=== PATIENT | female | born 1965 | race Caucasian/White ===

== ENCOUNTER → 2019-11-09 | Outpatient (CLI) | payer OTHER ==
[2019-11-09 16:56] LABS: Bilirubin, Urine Neg (Neg); Blood, Urine 1+ (Neg); Glucose Qualitative, Urine Neg (Neg); Ketones, Urine Neg (Neg); Leukocyte Esterase, Urine Neg (Neg); Nitrite, Urine Neg (Neg); Protein, Urine Neg (Neg); Urobilinogen, Urine NORM (Normal); pH, Urine 6.5 (5.0-8.0)
[2019-11-09 17:11] LABS: Appearance, Urine Clear (Clear); Color, Urine Yellow (P-Yellow)
[2019-11-09 17:16] LABS: Bacteria Rare /hpf; Red Blood Cells, Urine 0-2 /hpf (0-2); Squamous Epithelial Cells Rare /hpf (Few); White Blood Cells, Urine Not Seen /hpf (0-5)
== END | disposition home or self-care (01) ==
LOC: LAB 14:51 → LAB SHORT 14:51
PROVIDERS: Physician Assistant
DX: Z13.6 Encounter for screening for cardiovascular disorders (principal)
CPT/HCPCS: 81001

== ENCOUNTER 2019-12-06 00:03 | Day surgery (SDC) | payer OTHER ==
[2019-12-06] MEDS ORDERED: ALBU90OI INH (09:57)
[2019-12-06] MEDS ORDERED: PRAZ2 PO (09:57)
[2019-12-06] MEDS ORDERED: Atrovent Inha12.9 GM INH (09:59)
[2019-12-06] MEDS ORDERED: CLARITIN-D 121 EACH PO (10:00)
[2019-12-06] MEDS ORDERED: Flovent 44 mc10.6 GM INH (10:08)
[2019-12-06] MEDS ORDERED: GABA300 PO (10:12)
[2019-12-06] MEDS ORDERED: FOLI1 PO (10:14)
[2019-12-06] MEDS ORDERED: CHLO25 PO (10:14)
[2019-12-06] MEDS ORDERED: Prilosec Otc20 MG PO (10:14)
[2019-12-06] MEDS ORDERED: HYDPAM50 PO (10:15)
[2019-12-06] MEDS ORDERED: ATOR20 PO (10:16)
[2019-12-06] MEDS ORDERED: TRAZ100 PO (10:17)
[2019-12-06] MEDS ORDERED: Docusate Sodiu250 MG PO (10:17)
[2019-12-06] MEDS ORDERED: ONE-A-DAY MENO1 EACH PO (10:19)
[2019-12-06] MEDS ORDERED: BIOTIN1 MG PO (10:20)
[2019-12-06] MEDS ORDERED: C Complex1000 MG PO (10:38)
[2019-12-06] MEDS ORDERED: ACET500 PO (10:39)
[2019-12-06] MEDS ORDERED: NORT25 PO (10:40)
[2019-12-06] MEDS ORDERED: BUSP5 PO (10:40)
== END 2019-12-06 09:55 | disposition home or self-care (01) ==
LOC: ATC 00:03
DX: R35.0 Frequency of micturition (principal); R33.9 Retention of urine, unspecified; F17.210 Nicotine dependence, cigarettes, uncomplicated; I10 Essential (primary) hypertension; E78.5 Hyperlipidemia, unspecified; J44.9 Chronic obstructive pulmonary disease, unspecified; F41.9 Anxiety disorder, unspecified; F32.9 Major depressive disorder, single episode, unspecified; K21.9 Gastro-esophageal reflux disease without esophagitis; Z79.899 Other long term (current) drug therapy; Z88.8 Allergy status to other drugs, medicaments and biological substances; Z88.1 Allergy status to other antibiotic agents
CPT/HCPCS: 51798

== ENCOUNTER 2019-12-23 16:39 | Emergency (ER) | payer OTHER ==
[~2019-12-23] VITALS: Ht 167.6 cm; Wt 90.7 kg
[~2019-12-23 16:39] MED LIST: ACET500 PO; ATOR20 PO; BIOTIN1 MG PO; BUSP5 PO; C Complex1000 MG PO; CHLO25 PO; GABA300 PO; HYDPAM50 PO; ONE-A-DAY MENO1 EACH PO; PRAZ2 PO; Prilosec Otc20 MG PO; TRAZ100 PO
[2019-12-23] MEDS ORDERED: Mirapex0.25 MG PO (16:59)
[2019-12-23] MEDS ORDERED: Aspirin EC81 MG PO (17:00)
[2019-12-23] MEDS ORDERED: NICOTINE LOZENGE2 MG MM (17:01)
[2019-12-26] MEDS ORDERED: K-Dur10 MEQ PO (00:16)
== END 2019-12-23 22:07 | disposition home or self-care (01) ==
LOC: ER 16:39
DX: F10.129 Alcohol abuse with intoxication, unspecified (principal); G89.29 Other chronic pain; Z88.1 Allergy status to other antibiotic agents; Z79.899 Other long term (current) drug therapy
CPT/HCPCS: 99285

== ENCOUNTER 2019-12-25 09:40 | Emergency (ER) | payer OTHER ==
[~2019-12-25] VITALS: Ht 167.6 cm; Wt 86.2 kg
[~2019-12-25 09:40] MED LIST changes: +Aspirin EC81 MG PO; +Mirapex0.25 MG PO; +NICOTINE LOZENGE2 MG MM
[2019-12-25 10:59] LABS: Source, Urine Catheter
[2019-12-25 11:11] LABS: Bilirubin, Urine Neg (Neg); Blood, Urine Neg (Neg); Color, Urine Pale Yellow (P-Yellow); Glucose Qualitative, Urine Neg (Neg); Ketones, Urine Neg (Neg); Leukocyte Esterase, Urine Neg (Neg); Nitrite, Urine Neg (Neg); Protein, Urine Neg (Neg); Specific Gravity, Urine 1.005 (1.003-1.022); Urobilinogen, Urine NORM (Normal)
[2019-12-25 11:12] LABS: Appearance, Urine Clear (Clear)
[2019-12-26] MEDS ORDERED: K-Dur10 MEQ PO (00:16)
== END 2019-12-25 12:20 | disposition home or self-care (01) ==
LOC: ER 09:40
PROVIDERS: Physician Assistant
DX: R33.9 Retention of urine, unspecified (principal); F10.10 Alcohol abuse, uncomplicated; J44.9 Chronic obstructive pulmonary disease, unspecified; Z88.1 Allergy status to other antibiotic agents; Z79.899 Other long term (current) drug therapy
CPT/HCPCS: 51702; 51798; 81003; 99283-25

== ENCOUNTER 2019-12-26 13:26 | Emergency (ER) | payer OTHER ==
[~2019-12-26] VITALS: Ht 167.6 cm; Wt 90.7 kg
[~2019-12-26 13:26] MED LIST changes: +K-Dur10 MEQ PO
[2019-12-27] MEDS ORDERED: Chantix1 MG PO (12:58)
[2019-12-27] MEDS ORDERED: BUSP10 PO (12:59)
[2019-12-27] MEDS ORDERED: ATOR20 PO (12:59)
[2019-12-27] MEDS ORDERED: TRAZ100 PO (12:59)
[2019-12-27] MEDS ORDERED: GABA300 PO (12:59)
[2019-12-27] MEDS ORDERED: OMEP20ER PO (13:00)
[2019-12-27] MEDS ORDERED: HYDPAM50 PO (13:00)
[2019-12-27] MEDS ORDERED: PRAZ1 PO (13:02)
[2019-12-27] MEDS ORDERED: FOLI1 PO (13:03)
[2019-12-27] MEDS ORDERED: CHLO25 PO (13:03)
[2019-12-27] MEDS ORDERED: Docusate Sodiu250 MG PO (13:04)
[2019-12-27] MEDS ORDERED: NORT25 PO (13:05)
[2019-12-27] MEDS ORDERED: ALBU90OI INH (13:08)
[2019-12-27] MEDS ORDERED: ATROVENT HFA12.9 GM INH (13:08)
[2019-12-27] MEDS ORDERED: CLARITIN-D 121 EAC1 PO (13:09)
[2019-12-27] MEDS ORDERED: FLUT1DIS2 INH (13:10)
== END 2019-12-26 16:15 | disposition left against medical advice (07) ==
LOC: ER 13:26
DX: Z53.21 Procedure and treatment not carried out due to patient leaving prior to being seen by health care provider (principal)

== ENCOUNTER 2019-12-27 11:27 | Inpatient (IN) | payer OTHER ==
[~2019-12-27] VITALS: Ht 167.6 cm; Wt 88.1 kg
[2019-12-27] MEDS ORDERED: Chantix1 MG PO (12:58)
[2019-12-27] MEDS ORDERED: GABA300 PO (12:59)
[2019-12-27] MEDS ORDERED: ATOR20 PO (12:59)
[2019-12-27] MEDS ORDERED: TRAZ100 PO (12:59)
[2019-12-27] MEDS ORDERED: BUSP10 PO (12:59)
[2019-12-27] MEDS ORDERED: OMEP20ER PO (13:00)
[2019-12-27] MEDS ORDERED: HYDPAM50 PO (13:00)
[2019-12-27] MEDS ORDERED: PRAZ1 PO (13:02)
[2019-12-27 13:03] LABS: BASOPHILS ABSOLUTE AUTO 0.04 K/mm3 (0.00-0.23); BASOPHILS PERCENT AUTO 1 % (0-2); EOSINOPHILS ABSOLUTE AUTO 0.16 K/mm3 (0.00-0.68); EOSINOPHILS PERCENT AUTO 2 % (0-6); Hematocrit 38.4 % (33.0-51.0); Hemoglobin 12.9 g/dL (11.5-16.0); IMMATURE GRAN ABSOLUTE AUTO 0.02 K/mm3 (0.00-0.10); IMMATURE GRAN PERCENT AUTO 0 % (0-1); LYMPHOCYTES ABSOLUTE AUTO 2.52 K/mm3 (0.84-5.20); LYMPHOCYTES PERCENT AUTO 37 % (21-46); MONOCYTES ABSOLUTE AUTO 0.39 K/mm3 (0.16-1.47); MONOCYTES PERCENT AUTO 6 % (4-13); Mean Corpuscular HGB 31.9 pg (26.0-34.0); Mean Corpuscular HGB Conc 33.6 g/dL (31.5-36.5); Mean Corpuscular Volume 95 fL (80-100); Mean Platelet Volume 10.7 fL (9.1-12.4); NEUTROPHILS ABSOLUTE AUTO 3.71 K/mm3 (1.96-9.15); NEUTROPHILS PERCENT AUTO 54 % (41-73); Platelet Count 220 K/mm3 (150-400); RDW Coefficient Variation 12.7 % (11.7-14.2); RDW Standard Deviation 44.1 fL (35.1-46.3); Red Blood Cell Count 4.04 M/mm3 (3.80-5.20); White Blood Cell Count 6.84 K/mm3 (4.00-11.30)
[2019-12-27] MEDS ORDERED: CHLO25 PO (13:03)
[2019-12-27] MEDS ORDERED: FOLI1 PO (13:03)
[2019-12-27] MEDS ORDERED: Docusate Sodiu250 MG PO (13:04)
[2019-12-27] MEDS ORDERED: NORT25 PO (13:05)
[2019-12-27] MEDS ORDERED: ALBU90OI INH (13:08)
[2019-12-27] MEDS ORDERED: ATROVENT HFA12.9 GM INH (13:08)
[2019-12-27] MEDS ORDERED: CLARITIN-D 121 EAC1 PO (13:09)
[2019-12-27] MEDS ORDERED: FLUT1DIS2 INH (13:10)
[2019-12-27 13:12] LABS: Alanine Aminotransfer (ALT/SGP 68 U/L (12-78); Albumin, Blood 3.2 g/dL (3.4-5.0); Albumin/Globulin Ratio 0.9 (0.8-1.8); Alk Phos 94 U/L (50-136); Anion Gap 5 mmol/L (6-16); Aspartate Aminotrans (AST/SGOT 67 U/L (12-37); Bilirubin, Total 0.7 mg/dL (0.1-1.0); Blood Urea Nitrogen 12 mg/dL (8-24); Bun/Creatinine Ratio 16.3 (12.0-20.0); CO2, Blood 25 mmol/L (21-32); Calcium, Blood 8.2 mg/dL (8.5-10.1); Chloride, Blood 111 mmol/L (98-108); Creatinine, Blood 0.73 mg/dL (0.40-1.00); Ethanol (Alcohol), Blood, Med 201 mg/dL; Globulin, Blood 3.5 g/dL (2.2-4.0); Glomerular Filtration Rate >60 (60-); Glucose, Blood 107 mg/dL (70-99); Potassium, Blood 3.6 mmol/L (3.5-5.5); Sodium, Blood 141 mmol/L (136-145); Total Protein, Blood 6.7 g/dL (6.4-8.2)
[2019-12-27 14:35] LABS: Acetaminophen, Random <2.0 ug/mL (10.0-30.0); Salicylate <1.7 mg/dL (2.8-20.0); Thyroxine (T4) 9.3 ug/dL (4.8-13.9)
[2019-12-27 14:51] LABS: U Amphetamine Screen Not Detected; U Barbituate Screen Not Detected; U Benzodiazapine Screen DETECTED; U Buprenorphine Screen Not Detected; U Cannabinoids Screen Not Detected; U Cocaine Screen Not Detected; U Methadone Screen Not Detected; U Methamphetamine Screen Not Detected; U Opiates Screen Not Detected; U Oxycodone Screen Not Detected; U Phencyclidine Screen Not Detected; U Propoxyphene Screen Not Detected
[2019-12-27 21:56] LABS: Source, Urine Clean Catch
[2019-12-27 21:58] LABS: Appearance, Urine Hazy (Clear); Bilirubin, Urine Neg (Neg); Blood, Urine Neg (Neg); Color, Urine Yellow (P-Yellow); Glucose Qualitative, Urine Neg (Neg); Ketones, Urine Neg (Neg); Leukocyte Esterase, Urine Neg (Neg); Nitrite, Urine Pos (Neg); Protein, Urine 1+ (Neg); Urobilinogen, Urine NORM (Normal)
[2019-12-27 22:08] LABS: Amorphous Mod (0-Heavy); Bacteria Many /hpf; Red Blood Cells, Urine Not Seen /hpf (0-2); Squamous Epithelial Cells Not Seen /hpf (Few); White Blood Cells, Urine 0-2 /hpf (0-5)
--- NOTE | 2019-12-28 02:14 | NUR ---
PATIENT ARRIVED TO ROOM U8 AT APPROX 1955 VIA GURNEY FROM ER, PATIENT SLIDE TRANSFER TO BED WITH STAFF, SITTER PRESENT. COMPLETE ROOM ASSESSMENT AND AMENDMENT COMPLETED PER PATIENT ARRIVAL (SEE PATIENT RECORD). ALL PATIENT BELONGINGS LOCKED UP IN STORAGE AREA PER PROTOCOL. ADMISSION AND ASSESMENT COMPLETED AND PATIENT ORIENTED TO ROOM AND HOSPITAL POLICIES. SKIN C/D/I, SOME BRUISING NOTED ON PATIENTS RIGHT SHOULDER. PATIENT ALERT AND ORIENTED, STATES SHE IS AGGITATED AND ANXIOUS (SEE CIWA IN PATIENT CHART). PATIENT C/O NAUSEA, BURPING WITH SOME CLEAR EMESIS. MD NOTIFIED, ORDERS RECIEVED, MEDICATION ADMINISTERED PER ORDERS (SEE EMAR). PATIENT REFUSING ALL OF HER MAINTENANCE MEDICATION, WILL ONLY ALLOW ADMINISTRATION OF ATIVAN, LIBRIUM AND ANTIEMETICS. VSS, 1:1 SITTER WATCHING PATIENT CLOSELY, NURSING ROUNDS INCREASED, PATIENT ROOM CLOSE TO NURSING STATION AND BED LOW AND LOCKED WITH EXIT ALARM ON.
[2019-12-28 04:22] LABS: BASOPHILS ABSOLUTE AUTO 0.03 K/mm3 (0.00-0.23); BASOPHILS PERCENT AUTO 1 % (0-2); EOSINOPHILS ABSOLUTE AUTO 0.11 K/mm3 (0.00-0.68); EOSINOPHILS PERCENT AUTO 2 % (0-6); Hematocrit 36.2 % (33.0-51.0); Hemoglobin 11.8 g/dL (11.5-16.0); IMMATURE GRAN ABSOLUTE AUTO 0.01 K/mm3 (0.00-0.10); IMMATURE GRAN PERCENT AUTO 0 % (0-1); LYMPHOCYTES ABSOLUTE AUTO 2.27 K/mm3 (0.84-5.20); LYMPHOCYTES PERCENT AUTO 38 % (21-46); MONOCYTES ABSOLUTE AUTO 0.37 K/mm3 (0.16-1.47); MONOCYTES PERCENT AUTO 6 % (4-13); Mean Corpuscular HGB 31.6 pg (26.0-34.0); Mean Corpuscular HGB Conc 32.6 g/dL (31.5-36.5); Mean Corpuscular Volume 97 fL (80-100); NEUTROPHILS ABSOLUTE AUTO 3.15 K/mm3 (1.96-9.15); NEUTROPHILS PERCENT AUTO 53 % (41-73); RDW Coefficient Variation 12.7 % (11.7-14.2); RDW Standard Deviation 45.2 fL (35.1-46.3); Red Blood Cell Count 3.73 M/mm3 (3.80-5.20); White Blood Cell Count 5.94 K/mm3 (4.00-11.30)
[2019-12-28 04:28] LABS: Mean Platelet Volume 11.7 fL (9.1-12.4); Platelet Count 143 K/mm3 (150-400)
[2019-12-28 04:41] LABS: Anion Gap 5 mmol/L (6-16); Blood Urea Nitrogen 14 mg/dL (8-24); Bun/Creatinine Ratio 18.9 (12.0-20.0); CO2, Blood 26 mmol/L (21-32); Calcium, Blood 7.5 mg/dL (8.5-10.1); Chloride, Blood 109 mmol/L (98-108); Creatinine, Blood 0.74 mg/dL (0.40-1.00); Glomerular Filtration Rate >60 (60-); Glucose, Blood 89 mg/dL (70-99); Potassium, Blood 3.6 mmol/L (3.5-5.5); Sodium, Blood 140 mmol/L (136-145)
--- NOTE | 2019-12-28 05:29 | NUR ---
SHIFT SUMMARY: PATIENT RESPONDING WELL TO MEDICATIONS, SLEEPING WELL AT THIS TIME, NO OTHER CHANGES NOTED.
--- NOTE | 2019-12-28 08:00 | NUR ---
PCU AM NOTE PATIENT ALERT AND ORIENTED TO SELF, LOCATION AND TIME/DATE. PATIENTS VSS, RESP E/U ON ROOM AIR. PATIENT REMAINS IN NSR WITH NO CARDIAC EVENTS NOTED PER SPRING SETTER. PATIENT REPORTS THAT SHE DRINKS AT HOME WITH HER OFTEN, VERBALIZES THAT SHE DOES FEEL SAFE AT HOME WITH HER AND IS HOPING TO DISCHARGE HOME WITH HIM TODAY. PATIENT REPORTS BACK PAIN, NECK PAIN AND RIGHT SHOULDER PAIN. PATIENT VERBALIZES THAT SHE HAS CHRONIC ARTHRITIS IN SHOULDER BUT THAT THIS PAIN IS FROM A FALL IN ER ON 12/24. IV INFILTRATED - FLUIDS STOPPED AND IV REMOVED (ORDERS FOR NO IV GIVEN). [address] ON [address] - DOOR OPEN. CIWA 9. WILL MEDICATE PAIN PER CIWA AND EMAR FOR PAIN AND WITHDRAWL S/SX. WILL CONTINUE TO MONITOR.
--- NOTE | 2019-12-28 08:04 | NUR ---
Contacted Muna Baig in order to alert her to do the safety plan with the patient.
--- NOTE | 2019-12-28 08:25 | NUR ---
PATIENT REPORTS PAIN PATIENT VERBALIZES TO THIS RN THAT SHE HAD FALLEN IN ER (NOTED IN CHART 12/24 ER STAY) - PATIENT STATED THAT SHE CONTINUES TO HAVE PAIN IN RIGHT SHOULDER AND GENERALIZED RIGHT SIDE. IN CHART THIS RN NOTED THAT PATIENT HAD VERVICAL SPIN CT, HEAD CT AND RIGHT SHOULDER X-RAY ON 12/24 WITH NO ACUTE INJURY NOTED. PATIENT REQUEST TO SPEAK TO PATIENT ADVOCATE AND DENIED ANY FURTHER NEEDS. CALLED PATIENT ADVOCATE TO REPORT PATIENTS REQUEST FOR CONSULT.
--- NOTE | 2019-12-28 10:56 | NUR ---
ety Plan comoplete. Patient reports she is not suicidal, just in a lot of pain. She initially presents as tired and weak, but then spoke well and not in a wek voice. She drinks 12 - 18 shots of Fireball per day, lives with her who also drinks. She intitally reported she did not know how she got to the hospital, than later stated her called for ambulance. to [place] since 2002. She has 4 children, he has 2; with 13 "grandkinds" that she chose as her reason for living. She came to ED 3 days ago due to unable to urinate.Complained of having to wait 5 hours and says "my has a interventional radiology technologist". She was prompted to continue--relayed she "fell out of bed at the ED visit and no one would talk with me". Patient Advocate arrived to unit after this public relations writer completed Plan; she informed that the patient's concerns were known and being addressed. Patient acknowledged wrapping clothing around her neck while in ED yesterday. She denied she was trying to kill herself, but was non-commital on why she did it She nonchchalontly states she has been in numerous psych treatment and in alcohol drug treatment. She requests detox. She says she was refused by [facility], but later conveyed she has an outpatient counselor there. Patient discussed with Cro and RN. Patient has relayed different stories to the Cro. Inconsistencies were also noted during interview with patient. Conveyed patient's request for DC to detox and treatment for alcohol drug to RN and Cro. Patient is on 1:1 staff attendee in room with her. Patient is pereyra haired and appears older than her age. She complained that her needs to know if she is getting discharged today so "he doent need to make two trips". RN also informed that patient states the "meds" are not helping her pain, and she "got muscle relaxers at Urgent Care the other day", and "why cant she get those. Patient is irritable and appears to minimize mental health and addiction issues. Patient was seen by telepsych in ED yesterday at 1700 or so; recommendation was patient did not meet inpatient criteria but to investigate A&D treatment. Muna Baig M.Ed.-[facility]
--- NOTE | 2019-12-28 14:45 | NUR ---
SI PRECAUTIONS D/C'D PER MD SKAGGS PATIENT REMOVED FROM 1:1 SITTER AND SI PRECAUTIONS
--- NOTE | 2019-12-28 17:07 | NUR ---
TRANSFER SUMMARY PATIENT LEFT UNIT FOR MEDICAL FLOOR VIA WHEELCHAIR IN NO ACUTE DISTRESS. PATIENT HAS HAD ONGOING RIGHT SHOULDER PAIN - MILDLY RELIEVED PER PATIENT WITH MEDICATIONS PER EMAR. CIWA 8-10 T/O SHIFT. NO ACUTE DISTRESS NOTED. SHARIFA IN TO SEE PATIENT. REPORT GIVEN TO RENE STEEL. BELONGINGS SENT WITH PATIENT.
--- NOTE | 2019-12-28 17:23 | NUR ---
PT TRANSFERED TO MEDICAL FLOOR AT 1650 VIA WHEEL CHAIR. NO DISTRESS NOTED AOX4 AND COOPERATIVE OF CARE. CALL LIGHT WITHIN REACH. WILL CONTINUE TO MONITOR. HEADACHE TREATED PER EMAR.
--- NOTE | 2019-12-28 20:43 | NUR ---
PT REPORTS OF VERY BAD HEADACHE. PT ALSO REPORTS THAT SHE HAD FALLEN OFF THE GURNEY IN THE ER AND HIT HER HEAD. PT ALSO ON CIWA'S SCORE OF 13. RESTING IN BED WITH MILD VISUAL HALLUCINATIONS. PT REQUESTED TO SEE CHARGE NURSE ABOUT HAVING A SCAN DONE ON HER HEAD. CHARGE NURSE BHAVYA NOTIFIED AND SPOKE TO PT AND WE LISTENED TO HER CONCERNS. HOSPITALIST JOSUÉ TO SEE PT.
--- NOTE | 2019-12-29 05:10 | NUR ---
SHIPFITTER SUMMARY PT A/O X4. CAMERA MONITORING ON. INDEPENDENT IN ROOM. PT SLEPT WELL AFTER ULTRAM WAS GIVEN. PT VOIDED PERIODALLY WHILE SHE WAS AWAKE. PT KNOWN TO HAVE HISTORY OF URINARY RETENTION. PT VOIDED 300ML AT 0447 WITH POST RESIDUAL OF 296ML. WILL MAKE AM NURSE AWARE. CURRENTLY ASLEEP. CIWAS STABLE.
[2019-12-29 05:12] LABS: BASOPHILS ABSOLUTE AUTO 0.02 K/mm3 (0.00-0.23); BASOPHILS PERCENT AUTO 1 % (0-2); EOSINOPHILS ABSOLUTE AUTO 0.13 K/mm3 (0.00-0.68); EOSINOPHILS PERCENT AUTO 3 % (0-6); Hematocrit 36.4 % (33.0-51.0); Hemoglobin 11.8 g/dL (11.5-16.0); IMMATURE GRAN ABSOLUTE AUTO 0.01 K/mm3 (0.00-0.10); IMMATURE GRAN PERCENT AUTO 0 % (0-1); LYMPHOCYTES ABSOLUTE AUTO 1.74 K/mm3 (0.84-5.20); LYMPHOCYTES PERCENT AUTO 45 % (21-46); MONOCYTES ABSOLUTE AUTO 0.23 K/mm3 (0.16-1.47); MONOCYTES PERCENT AUTO 6 % (4-13); Mean Corpuscular HGB Conc 32.4 g/dL (31.5-36.5); Mean Corpuscular Volume 99 fL (80-100); Mean Platelet Volume 11.1 fL (9.1-12.4); NEUTROPHILS ABSOLUTE AUTO 1.74 K/mm3 (1.96-9.15); NEUTROPHILS PERCENT AUTO 45 % (41-73); Platelet Count 161 K/mm3 (150-400); RDW Coefficient Variation 12.9 % (11.7-14.2); RDW Standard Deviation 46.2 fL (35.1-46.3); Red Blood Cell Count 3.69 M/mm3 (3.80-5.20); White Blood Cell Count 3.87 K/mm3 (4.00-11.30)
[2019-12-29] MEDS ORDERED: ACET325 PO (10:00)
[2019-12-29] MEDS ORDERED: CEPH500 PO (10:00)
[2019-12-29] MEDS ORDERED: FAMO20 PO (10:01)
[2019-12-29] MEDS ORDERED: KETO10 PO (10:02)
[2019-12-29] MEDS ORDERED: HIGH POTENCY P1 EAC1 PO (10:03)
[2019-12-29] MEDS ORDERED: ONDA4ODT MM (10:04)
[2019-12-29] MEDS ORDERED: TRAM50 PO (11:17)
--- NOTE | 2019-12-29 11:39 | NUR ---
PT DISCHARGED TO [facility] FOR ALCOHOL TREATMENT, PICKED UP SPOUSE. SPOUSE QUITE UPSET THAT PT NOT "READY TO GO AT 10:30, LIKE THE BOARD SAYS", DID NOT UNDERSTAND THAT PT WOULD NOT HAVE D/C ORDERS UNTIL SEEN BY DR. BABCOCK. EDUCATED HIM THAT PROVIDERS ROUND ON ICU AND PCU PATIENTS FIRST THEY ARE THE SICKEST, THEN THEY ROUND ON MEDICAL PATIENTS. SPOUSE WAS CONCERNED THAT PT WOULD LOSE HER BED IF NOT AT [facility] BY 1200 NOON; THIS AUTHOR PLACED PHONE CALL AND LEFT FOR ARGYLE INTAKE NURSE TO HOLD HER BED D/C MIGHT BE SLIGHTLY DELAYED. PT LEFT THE UNIT AT 1125 VIA W/C.
== END 2019-12-29 11:28 | disposition home or self-care (01) | DRG 897 ==
LOC: ER 11:27 → PCU 12:25 → EOR 12:25 → PCU 12:25 → MEDS 12-28 16:51
PROVIDERS: Family Medicine; Internal Medicine; ADMIT Emergency Medicine
DX: F10.24 Alcohol dependence with alcohol-induced mood disorder (principal); N39.0 Urinary tract infection, site not specified; R45.851 Suicidal ideations; F33.9 Major depressive disorder, recurrent, unspecified; F43.10 Post-traumatic stress disorder, unspecified; J44.9 Chronic obstructive pulmonary disease, unspecified; F17.210 Nicotine dependence, cigarettes, uncomplicated; R33.9 Retention of urine, unspecified; R16.0 Hepatomegaly, not elsewhere classified; I72.8 Aneurysm of other specified arteries; R31.9 Hematuria, unspecified; Y90.7 Blood alcohol level of 200-239 mg/100 ml; M19.90 Unspecified osteoarthritis, unspecified site; F10.220 Alcohol dependence with intoxication, uncomplicated
CPT/HCPCS: 36415; 51702; 51798; 76770; 80048; 80053; 81001; 83690; 83735; 84436; 84443; 85025; 87077; 87086; 87147; 87186; 94762; 96365-59; 99285-25; A9270; A9270-GY; G0480; J0780; J2060; J2405; J3411; J3475; J7030; J7042; Q3014

== ENCOUNTER → 2020-06-05 | Outpatient (CLI) | payer OTHER ==
[~2020-06-05] MED LIST changes: +ACET325 PO; +ALBU90OI INH; +ASPI81CH PO; +ATROVENT HFA12.9 GM INH; +BUSP10 PO; +CEPH500 PO; +CLARITIN-D 121 EAC1 PO; +Chantix1 MG PO; +Docusate Sodiu250 MG PO; +FAMO20 PO; +FLUT1DIS2 INH; +FOLI1 PO; +Flonase 0.05% N16 GM; +HIGH POTENCY P1 EAC1 PO; +KETO10 PO; +METHOCARBAMOL PO; +NORT25 PO; +OMEP20ER PO; +ONDA4ODT MM; +PRAZ1 PO; +Percocet 5-3251 EACH PO; +TRAM50 PO
[2020-06-08 06:10] LABS: COTININE Negative ng/mL (Cutoff=300)
== END | disposition home or self-care (01) ==
LOC: LAB SHORT 11:18 → OLS 11:18
PROVIDERS: Orthopaedic Surgery
DX: Z87.891 Personal history of nicotine dependence (principal)

== ENCOUNTER 2020-06-25 06:29 | Day surgery (SDC) | payer OTHER ==
[~2020-06-25] VITALS: Ht 167.6 cm; Wt 94.4 kg
[~2020-06-25 06:29] MED LIST changes: -ASPI81CH PO; -Percocet 5-3251 EACH PO
--- NOTE | 2020-06-25 19:20 | NUR ---
SHIFT SUMMARY WORKED W/ THERAPY TODAY, BUT UNMOTIVATED TO AMBULATE IN HALLWAYS OR SIT IN CHAIR. DID AMBULATE ONCE IN HALLWAY AND SIT UP IN CHAIR THIS EVENING AFTER MUCH ENCOURAGMENT. BENEFITS OF EARLY AMBULATION & EXERCISE DISCUSSED. PAIN REASONABLY MANAGED. EATING, DRINKING, VOIDING WELL.
[2020-06-26 04:26] LABS: BASOPHILS ABSOLUTE AUTO 0.03 K/mm3 (0.00-0.23); BASOPHILS PERCENT AUTO 0 % (0-2); EOSINOPHILS ABSOLUTE AUTO 0.03 K/mm3 (0.00-0.68); EOSINOPHILS PERCENT AUTO 0 % (0-6); Hematocrit 32.5 % (33.0-51.0); Hemoglobin 10.3 g/dL (11.5-16.0); IMMATURE GRAN ABSOLUTE AUTO 0.02 K/mm3 (0.00-0.10); IMMATURE GRAN PERCENT AUTO 0 % (0-1); LYMPHOCYTES ABSOLUTE AUTO 1.88 K/mm3 (0.84-5.20); LYMPHOCYTES PERCENT AUTO 22 % (21-46); MONOCYTES ABSOLUTE AUTO 0.57 K/mm3 (0.16-1.47); MONOCYTES PERCENT AUTO 7 % (4-13); Mean Corpuscular HGB 31.1 pg (26.0-34.0); Mean Corpuscular HGB Conc 31.7 g/dL (31.5-36.5); Mean Corpuscular Volume 98 fL (80-100); Mean Platelet Volume 10.9 fL (9.1-12.4); NEUTROPHILS ABSOLUTE AUTO 6.21 K/mm3 (1.96-9.15); NEUTROPHILS PERCENT AUTO 71 % (41-73); Platelet Count 198 K/mm3 (150-400); RDW Coefficient Variation 11.9 % (11.7-14.2); RDW Standard Deviation 43.4 fL (35.1-46.3); Red Blood Cell Count 3.31 M/mm3 (3.80-5.20); White Blood Cell Count 8.74 K/mm3 (4.00-11.30)
[2020-06-26 04:44] LABS: Anion Gap 3 mmol/L (6-16); Blood Urea Nitrogen 15 mg/dL (8-24); Bun/Creatinine Ratio 21.4 (12.0-20.0); CO2, Blood 30 mmol/L (21-32); Calcium, Blood 8.6 mg/dL (8.5-10.1); Chloride, Blood 109 mmol/L (98-108); Glomerular Filtration Rate >60 (60-); Glucose, Blood 110 mg/dL (70-99); Potassium, Blood 3.7 mmol/L (3.5-5.5); Sodium, Blood 142 mmol/L (136-145)
--- NOTE | 2020-06-26 04:55 | NUR ---
SHIFT SUMMARY: PT POD#1 LT DARCY. AQUACEL TO LEFT HIP AND RIGHT HIP C/D/I. PT MINIMAL ASSIST TO BATHROOM W/FWW+GB. BEING MEDICATED WITH 5MG OXY AND SCHEDULED TORADOL AND TYLENOL. PT ALSO GIVEN MUSCLE RELAXER PER PT BASELINE. PT DID GET TEARFUL THIS MORNING D/T 9/10 PAIN. PT VOIDING WELL AND MIGDALIA PO. PT REPORTS OCC HAVING TO STRAIGHT CATH HERSELF AT HOME BUT HAS NOT REQUIRED THAT OVER NIGHT. PLAN FOR PHYSICAL THERAPY TODAY AND POSS DISCHARGE.
[2020-06-26] MEDS ORDERED: Percocet 5-3251 EACH PO (10:00)
[2020-06-26] MEDS ORDERED: ASPI81CH PO (10:01)
--- NOTE | 2020-06-26 11:29 | NUR ---
DISCHARGE CLEARED THERAPY, PAIN WELL MANAGED. AMBULATING WELL. SCRIPTS, DRSGS, & POLAR PACK SENT. ESCORTED OUT VIA W/C.
== END 2020-06-26 11:00 | disposition home or self-care (01) ==
LOC: ORSCMMR 06:29 → ORD 07:30 → SURS 12:20 → ORSCMMR 06-26 11:00 → SURS 06-26 11:00
PROVIDERS: Orthopaedic Surgery
PROC: 8E0Y0CZ Robotic Assisted Procedure of Lower Extremity, Open Approach (ICD-10-PCS; principal; 2020-06-25 08:15)
PROC: 0SRB0JA Replacement of Left Hip Joint with Synthetic Substitute, Uncemented, Open Approach (ICD-10-PCS; principal; 2020-06-25 08:15)
DX: M16.12 Unilateral primary osteoarthritis, left hip (principal); J44.9 Chronic obstructive pulmonary disease, unspecified; Z87.891 Personal history of nicotine dependence; K21.9 Gastro-esophageal reflux disease without esophagitis; E66.9 Obesity, unspecified; Z68.33 Body mass index [BMI] 33.0-33.9, adult; Z79.899 Other long term (current) drug therapy; M79.7 Fibromyalgia
CPT/HCPCS: 27130; S2900; 36415; 72170; 80048; 85025; 88300; 97110; 97116; 97161; 97530; A9270; A9270-GY; C1776; J0171; J0690; J0735; J1100; J1200; J1885; J2250; J2370; J2405; J2704; J2795; J3010; J7120; Q0163

== ENCOUNTER 2020-09-17 09:28 | Day surgery (SDC) | payer OTHER ==
[~2020-09-17] VITALS: Ht 167.6 cm; Wt 94.3 kg
[~2020-09-17 09:28] MED LIST changes: +ASCO500 PO; +ASPI81CH PO; +BENADRYL25 M1 PO; +Biotin800 MCG PO; +CALCIUM PO; +LORA10ER PO; +MAGNESIUM PO; +MENOPAUSE SUPPORT PO; +MULVITA PO; +Percocet 5-3251 EACH PO; +TOCO1000 PO
[2020-09-17] MEDS ORDERED: MIRALAX17 GM PO (10:01)
--- NOTE | 2020-09-17 10:45 | NUR ---
Ambulatory in Day Surgery Surgical site prepped with 2% Chlorhexidine cloth wipe. History, Chart, Medications and Allergies reviewed before start of procedure.Lungs clear T/O to Auscultation. Patient confirms NPO status and agrees with scheduled surgery. Patient reports completing Chlorhexadine shower X2 prior to admission to hospital.
--- NOTE | 2020-09-17 11:09 | NUR ---
PT TOOK ALL PREOP MEDS WITH A SIP OF WATER. PT STATES NARCOTIC PAIN MEDS DO NO MAKE HER ITCHY ANYMORE. PT IS CURRENTLY TAKING PERCOCET WITHOUT DIFFICULTY.
--- NOTE | 2020-09-17 13:36 | NUR ---
09/17/20 1336 Jayesh Garcia SPINAL ANESTHESIA GIVEN FOR SURGERY BUT THEN CONVERTED TO GENERAL PATIENT WAS MOVING TOO MUCH.
[2020-09-18 05:54] LABS: BASOPHILS ABSOLUTE AUTO 0.01 K/mm3 (0.00-0.23); BASOPHILS PERCENT AUTO 0 % (0-2); EOSINOPHILS ABSOLUTE AUTO 0.01 K/mm3 (0.00-0.68); EOSINOPHILS PERCENT AUTO 0 % (0-6); Hematocrit 30.8 % (33.0-51.0); IMMATURE GRAN ABSOLUTE AUTO 0.02 K/mm3 (0.00-0.10); IMMATURE GRAN PERCENT AUTO 0 % (0-1); LYMPHOCYTES ABSOLUTE AUTO 1.55 K/mm3 (0.84-5.20); LYMPHOCYTES PERCENT AUTO 22 % (21-46); MONOCYTES ABSOLUTE AUTO 0.59 K/mm3 (0.16-1.47); MONOCYTES PERCENT AUTO 8 % (4-13); Mean Corpuscular HGB 30.2 pg (26.0-34.0); Mean Corpuscular HGB Conc 32.5 g/dL (31.5-36.5); Mean Corpuscular Volume 93 fL (80-100); NEUTROPHILS ABSOLUTE AUTO 4.92 K/mm3 (1.96-9.15); NEUTROPHILS PERCENT AUTO 69 % (41-73); Platelet Count 161 K/mm3 (150-400); RDW Coefficient Variation 12.4 % (11.7-14.2); RDW Standard Deviation 42.5 fL (35.1-46.3); Red Blood Cell Count 3.31 M/mm3 (3.80-5.20)
[2020-09-18 06:20] LABS: Anion Gap 6 mmol/L (6-16); Blood Urea Nitrogen 13 mg/dL (8-24); Bun/Creatinine Ratio 18.2 (12.0-20.0); CO2, Blood 27 mmol/L (21-32); Calcium, Blood 8.3 mg/dL (8.5-10.1); Chloride, Blood 110 mmol/L (98-108); Creatinine, Blood 0.72 mg/dL (0.40-1.00); Glomerular Filtration Rate >60 (60-); Glucose, Blood 116 mg/dL (70-99); Sodium, Blood 143 mmol/L (136-145)
[2020-09-18] MEDS ORDERED: ASPI81CH PO (09:33)
[2020-09-18] MEDS ORDERED: Percocet 5-3251 EACH PO (09:33)
--- NOTE | 2020-09-18 12:24 | NUR ---
DISCHARGE SUMMARY PT POD #1 FOR A TOTAL RIGHT HIP. A/O X4 AND A MINIMAL ASSIST WHEN UP WITH A FWW/GB. MEDICATED FOR PAIN WITH OXY AND TORADOL THIS SHIFT. AQUACELL DRESSINGS TO BOTH HIPS C/D/I. IV DC'D WNL. VSS. WENT HOME WITH .
== END 2020-09-18 12:27 | disposition home or self-care (01) ==
LOC: ORSCMMR 09:28 → ORD 11:00 → ORSCMMR 12:15 → ORD 13:45 → SURS 15:45 → ORSCMMR 09-18 12:27
PROVIDERS: Orthopaedic Surgery
PROC: 0SR90JA Replacement of Right Hip Joint with Synthetic Substitute, Uncemented, Open Approach (ICD-10-PCS; principal; 2020-09-17 11:00)
PROC: 8E0Y0CZ Robotic Assisted Procedure of Lower Extremity, Open Approach (ICD-10-PCS; principal; 2020-09-17 11:00)
DX: M16.11 Unilateral primary osteoarthritis, right hip (principal); J44.9 Chronic obstructive pulmonary disease, unspecified; K21.9 Gastro-esophageal reflux disease without esophagitis; Z87.891 Personal history of nicotine dependence; M79.7 Fibromyalgia; F41.8 Other specified anxiety disorders; F43.10 Post-traumatic stress disorder, unspecified; Z79.899 Other long term (current) drug therapy; E66.9 Obesity, unspecified; Z68.33 Body mass index [BMI] 33.0-33.9, adult
CPT/HCPCS: 27130; S2900; 36415; 72170; 80048; 85025; 97110; 97116; 97161; 97530; A9270; C1776; J0171; J0690; J0735; J1100; J1170; J1885; J2250; J2370; J2405; J2704; J2795; J3010; J7120

== ENCOUNTER 2021-05-26 18:57 | Emergency (ER) | payer OTHER ==
[~2021-05-26] VITALS: Ht 167.6 cm; Wt 90.7 kg
[~2021-05-26 18:57] MED LIST changes: +MIRALAX17 GM PO
== END 2021-05-26 20:30 | disposition left against medical advice (07) ==
LOC: ER 18:57
DX: F10.20 Alcohol dependence, uncomplicated (principal); Z53.21 Procedure and treatment not carried out due to patient leaving prior to being seen by health care provider; J44.9 Chronic obstructive pulmonary disease, unspecified; F17.200 Nicotine dependence, unspecified, uncomplicated; Z88.1 Allergy status to other antibiotic agents; Z79.899 Other long term (current) drug therapy; Z79.82 Long term (current) use of aspirin
CPT/HCPCS: 36415; 99284

== ENCOUNTER 2021-05-29 11:35 | Emergency (ER) | payer OTHER ==
[~2021-05-29] VITALS: Ht 167.6 cm; Wt 95.7 kg
[2021-05-29 12:20] LABS: BASOPHILS ABSOLUTE AUTO 0.05 K/mm3 (0.00-0.23); BASOPHILS PERCENT AUTO 1 % (0-2); EOSINOPHILS ABSOLUTE AUTO 0.07 K/mm3 (0.00-0.68); EOSINOPHILS PERCENT AUTO 1 % (0-6); Hematocrit 45.3 % (33.0-51.0); Hemoglobin 15.4 g/dL (11.5-16.0); IMMATURE GRAN ABSOLUTE AUTO 0.03 K/mm3 (0.00-0.10); IMMATURE GRAN PERCENT AUTO 0 % (0-1); LYMPHOCYTES ABSOLUTE AUTO 1.88 K/mm3 (0.84-5.20); LYMPHOCYTES PERCENT AUTO 21 % (21-46); MONOCYTES ABSOLUTE AUTO 0.53 K/mm3 (0.16-1.47); MONOCYTES PERCENT AUTO 6 % (4-13); Mean Corpuscular HGB 31.8 pg (26.0-34.0); Mean Corpuscular Volume 94 fL (80-100); Mean Platelet Volume 10.1 fL (9.1-12.4); NEUTROPHILS ABSOLUTE AUTO 6.44 K/mm3 (1.96-9.15); NEUTROPHILS PERCENT AUTO 72 % (41-73); Platelet Count 223 K/mm3 (150-400); RDW Standard Deviation 44.6 fL (35.1-46.3); Red Blood Cell Count 4.84 M/mm3 (3.80-5.20)
[2021-05-29 12:48] LABS: Alanine Aminotransfer (ALT/SGP 66 U/L (12-78); Albumin, Blood 3.5 g/dL (3.4-5.0); Albumin/Globulin Ratio 0.8 (0.8-1.8); Alk Phos 122 U/L (50-136); Anion Gap 13 mmol/L (6-16); Aspartate Aminotrans (AST/SGOT 120 U/L (12-37); Bilirubin, Total 0.5 mg/dL (0.1-1.0); Blood Urea Nitrogen 13 mg/dL (8-24); Bun/Creatinine Ratio 17.6 (12.0-20.0); CO2, Blood 21 mmol/L (21-32); Calcium, Blood 8.2 mg/dL (8.5-10.1); Chloride, Blood 102 mmol/L (98-108); Creatinine, Blood 0.74 mg/dL (0.40-1.00); Globulin, Blood 4.3 g/dL (2.2-4.0); Glomerular Filtration Rate >60 (60-); Glucose, Blood 90 mg/dL (70-99); Potassium, Blood 3.6 mmol/L (3.5-5.5); Sodium, Blood 136 mmol/L (136-145); Total Protein, Blood 7.8 g/dL (6.4-8.2)
== END 2021-05-29 15:14 | disposition other institution (70) ==
LOC: ER 11:35
PROVIDERS: Emergency Medicine
DX: E86.0 Dehydration (principal); R11.2 Nausea with vomiting, unspecified; F10.10 Alcohol abuse, uncomplicated; J44.9 Chronic obstructive pulmonary disease, unspecified; Z88.1 Allergy status to other antibiotic agents; Z79.899 Other long term (current) drug therapy; Z79.82 Long term (current) use of aspirin
CPT/HCPCS: 36415; 80053; 83690; 85025; 86850; 86870; 86900; 86901; 93005; 93010; 96361; 96374; 99284-25; C9113; J7030

== ENCOUNTER 2021-06-24 06:02 | Day surgery (SDC) | payer OTHER ==
[~2021-06-24] VITALS: Ht 167.6 cm; Wt 91.9 kg
--- NOTE | 2021-06-24 06:52 | NUR ---
PT ADMITTED TO [facility]. AGREES WITH PLANNED SURGERY. LUNG SOUNDS CLAER. NOZIN TO NARES PER ORDER.
--- NOTE | 2021-06-24 07:09 | NUR ---
PT PLACED DENTURES IN OWN DENTURE CUP AND PUT IN BELONGINGS BAG.
[2021-06-24] MEDS ORDERED: ASPIR 8181 M1 PO (16:35)
--- NOTE | 2021-06-24 17:01 | NUR ---
SHIFT SUMMARY/DISCHARGE AA0X4 S/P LTKA PT CLEARED THERAPY. PAIN WELL MANAGED PER EMAR. PICKING UP PRESCRIPTIONS AND THEN ON WAY TO SUPPORT ENGINEER PT. IV REMOVED FOR DISCHARGE AND ALL INSTRUCTIONS GONE OVER WITH PATIENT. ALL BELONGINGS WITH PATIENT. PLAN IS TO DISCHARGE ONCE ARRIVES.
--- NOTE | 2021-06-24 17:23 | NUR ---
PT LEFT AT 1723. ALL BELONGINGS SENT WITH PATIENT. EXTRA DRESSING SUPPLIES SENT WITH PATIENT.
== END 2021-06-24 17:34 | disposition home or self-care (01) ==
LOC: ORSCMMR 06:02 → ORD 07:30 → SURS 10:29 → ORSCMMR 17:34
PROVIDERS: Orthopaedic Surgery
PROC: 0SRD0JA Replacement of Left Knee Joint with Synthetic Substitute, Uncemented, Open Approach (ICD-10-PCS; principal; 2021-06-24 07:30)
PROC: 8E0Y0CZ Robotic Assisted Procedure of Lower Extremity, Open Approach (ICD-10-PCS; principal; 2021-06-24 07:30)
DX: M17.12 Unilateral primary osteoarthritis, left knee (principal); J44.9 Chronic obstructive pulmonary disease, unspecified; K21.9 Gastro-esophageal reflux disease without esophagitis; Z87.891 Personal history of nicotine dependence; Z79.899 Other long term (current) drug therapy
CPT/HCPCS: 27447; S2900; 73560-LT; 97110; 97116; 97161; A9270; C1776; J0171; J0690; J0735; J1100; J1885; J2250; J2405; J2704; J2795; J3010; J7120

== ENCOUNTER 2022-01-08 23:51 | Emergency (ER) | payer OTHER ==
[~2022-01-08] VITALS: Ht 167.6 cm; Wt 93.0 kg
[~2022-01-08 23:51] MED LIST changes: +ASPIR 8181 M1 PO
[2022-01-09 00:24] LABS: BASOPHILS ABSOLUTE AUTO 0.05 K/mm3 (0.00-0.23); BASOPHILS PERCENT AUTO 1 % (0-2); EOSINOPHILS PERCENT AUTO 3 % (0-6); Hematocrit 40.6 % (33.0-51.0); Hemoglobin 13.3 g/dL (11.5-16.0); IMMATURE GRAN ABSOLUTE AUTO 0.01 K/mm3 (0.00-0.10); IMMATURE GRAN PERCENT AUTO 0 % (0-1); LYMPHOCYTES ABSOLUTE AUTO 2.75 K/mm3 (0.84-5.20); LYMPHOCYTES PERCENT AUTO 42 % (21-46); MONOCYTES ABSOLUTE AUTO 0.48 K/mm3 (0.16-1.47); MONOCYTES PERCENT AUTO 7 % (4-13); Mean Corpuscular HGB 31.4 pg (26.0-34.0); Mean Corpuscular HGB Conc 32.8 g/dL (31.5-36.5); Mean Corpuscular Volume 96 fL (80-100); Mean Platelet Volume 10.6 fL (9.1-12.4); NEUTROPHILS ABSOLUTE AUTO 3.07 K/mm3 (1.96-9.15); NEUTROPHILS PERCENT AUTO 47 % (41-73); Platelet Count 192 K/mm3 (150-400); RDW Coefficient Variation 12.8 % (11.7-14.2); RDW Standard Deviation 45.2 fL (35.1-46.3); Red Blood Cell Count 4.24 M/mm3 (3.80-5.20); White Blood Cell Count 6.56 K/mm3 (4.00-11.30)
[2022-01-09 00:41] LABS: Influenza A, PCR NEGATIVE (NEGATIVE); Influenza B, PCR NEGATIVE (NEGATIVE); Resp Syncytial Virus, PCR NEGATIVE (NEGATIVE); SARS-Cov-2 (COVID-19) PCR, MMC NEGATIVE (NEGATIVE)
[2022-01-09 00:42] LABS: Albumin, Blood 3.9 g/dL (3.4-5.0); Albumin/Globulin Ratio 1.1 (0.8-1.8); Bilirubin, Total 0.3 mg/dL (0.1-1.0); Bun/Creatinine Ratio 15.7 (12.0-20.0); Calcium, Blood 9.6 mg/dL (8.5-10.1); Creatinine, Blood 0.83 mg/dL (0.40-1.00); Globulin, Blood 3.6 g/dL (2.2-4.0); Potassium, Blood 3.5 mmol/L (3.5-5.5); Total Protein, Blood 7.5 g/dL (6.4-8.2)
== END 2022-01-09 02:23 | disposition home or self-care (01) ==
LOC: ER 23:51
PROVIDERS: Emergency Medicine
DX: R51.9 Headache, unspecified (principal); R07.9 Chest pain, unspecified; Z88.1 Allergy status to other antibiotic agents; Z79.899 Other long term (current) drug therapy; J44.9 Chronic obstructive pulmonary disease, unspecified; Z20.822 Contact with and (suspected) exposure to COVID-19
CPT/HCPCS: 0241U; 36415; 70450; 71045; 80053; 84484; 85025; 93005; 93010; 96374; 96375; 99285-25; J0780; J1200; J7030

== ENCOUNTER → 2022-01-14 | Outpatient (CLI) | payer OTHER ==
[2022-01-14 19:09] LABS: Appearance, Urine Clear (Clear); Bilirubin, Urine Neg (Neg); Blood, Urine Neg (Neg); Color, Urine Yellow (P-Yellow); Glucose Qualitative, Urine Neg (Neg); Ketones, Urine Neg (Neg); Leukocyte Esterase, Urine Neg (Neg); Nitrite, Urine Neg (Neg); Protein, Urine Neg (Neg); Source, Urine Voided; Specific Gravity, Urine 1.015 (1.003-1.022); Urobilinogen, Urine NORM (Normal)
== END ==
LOC: LAB SHORT 17:48
PROVIDERS: Nurse Practitioner Family
DX: R35.0 Frequency of micturition (principal)
CPT/HCPCS: 81003

== ENCOUNTER → 2022-01-25 | Outpatient (CLI) | payer OTHER ==
[2022-01-26 13:51] LABS: Creatinine Urine 14.4 mg/dL (27.00-270.00)
== END ==
LOC: LAB SHORT 06:45 → LAB 06:45
PROVIDERS: Nurse Practitioner Family
DX: R35.89 Other polyuria (principal)
CPT/HCPCS: 81050; 82570

== ENCOUNTER → 2022-10-08 | Outpatient (CLI) | payer OTHER ==
[2022-10-13 14:10] LABS: HPV 16 Negative (Negative); HPV 18 Negative (Negative); HPV OTHER HR TYPES Negative (Negative)
== END | disposition home or self-care (01) ==
LOC: LAB SHORT 08:30 → LAB 08:30
PROVIDERS: Nurse Practitioner Family
DX: Z01.419 Encounter for gynecological examination (general) (routine) without abnormal findings (principal)
CPT/HCPCS: 87624; G0145

== ENCOUNTER 2022-11-18 07:59 | Day surgery (SDC) | payer OTHER ==
[~2022-11-18] VITALS: Ht 167.6 cm; Wt 85.8 kg
[2022-11-18] VITALS (18 sets, daily range): BP systolic 114–150; BP diastolic 64–88
[~2022-11-18 07:59] MED LIST changes: +BUPR150ER PO; +DIAZ5 PO; +FERSU300 PO; +FLONASE ALLERG9.9 M2; +HYDCOR2.5C PR; +Robaxin750 MG PO; +Xylocaine5 M1 TOP
[2022-11-18] MEDS ORDERED: Chantix1 MG (08:18)
--- NOTE | 2022-11-18 08:36 | NUR ---
Ambulatory in Day Surgery History, Chart, Medications and Allergies reviewed before start of procedure.Lungs clear T/O to Auscultation. Patient confirms NPO status and agrees with scheduled surgery.Pt reports that she did a Fleets enema this am. Patient States Post-Procedure ride home has been arranged.
--- NOTE | 2022-11-18 12:26 | NUR ---
Patient up to Ambulate independently. Gait steady. Discharge instructions reviewed with patient. Patient verbalizes understanding. Copy given to patient to take home. Patient States Post-Procedure ride home has been arranged. Discharged via wheelchair to private car for ride home.
--- NOTE | 2022-11-18 12:30 | NUR ---
DISCHARGED TO HOME. CONTINUES TO HAVE MILD PAIN TO RECTAL AREA 09/18. NO RELIEF YET WITH PAIN MED BUT TOLERATABLE. PATIENT WANTS TO GO HOME.
--- NOTE | 2022-11-19 08:59 | NUR ---
11/19/22 0859 Sadie Gr VERIFICATIONS: EDIT CHART.
== END 2022-11-18 12:29 | disposition home or self-care (01) ==
LOC: ORSCMMR 07:59 → ORD 09:15 → ORSCMMR 12:29
PROVIDERS: Surgery
PROC: 06BY0ZC Excision of Hemorrhoidal Plexus, Open Approach (ICD-10-PCS; principal; 2022-11-18 09:15)
DX: K64.2 Third degree hemorrhoids (principal); K59.09 Other constipation; E78.5 Hyperlipidemia, unspecified; J44.9 Chronic obstructive pulmonary disease, unspecified; F17.210 Nicotine dependence, cigarettes, uncomplicated; K21.9 Gastro-esophageal reflux disease without esophagitis; K76.0 Fatty (change of) liver, not elsewhere classified; M79.7 Fibromyalgia; Z79.899 Other long term (current) drug therapy; F41.8 Other specified anxiety disorders
CPT/HCPCS: 88304; A9270; J0694; J1100; J1170; J1885; J2250; J2405; J2704; J3010; J7120

== ENCOUNTER → 2023-01-14 | Outpatient (CLI) | payer OTHER ==
[~2023-01-14] MED LIST changes: +Chantix1 MG
[2023-01-14 13:11] LABS: Source, Urine Clean Catch
[2023-01-14 17:55] LABS: Appearance, Urine Clear (Clear); Bilirubin, Urine Neg (Neg); Blood, Urine Neg (Neg); Color, Urine Yellow (P-Yellow); Glucose Qualitative, Urine Neg (Neg); Ketones, Urine Neg (Neg); Leukocyte Esterase, Urine Neg (Neg); Nitrite, Urine Neg (Neg); Protein, Urine Neg (Neg); Urobilinogen, Urine NORM (Normal); pH, Urine 6.5 (5.0-8.0)
== END | disposition home or self-care (01) ==
LOC: LAB 13:10 → LAB SHORT 13:10
PROVIDERS: Nurse Practitioner Family
DX: R30.0 Dysuria (principal)
CPT/HCPCS: 81003

== ENCOUNTER 2023-08-21 11:50 | Emergency (ER) | payer OTHER ==
[~2023-08-21] VITALS: Ht 167.6 cm; Wt 90.7 kg
[2023-08-21 12:56] LABS: BASOPHILS ABSOLUTE AUTO 0.03 K/mm3 (0.00-0.23); BASOPHILS PERCENT AUTO 1 % (0-2); EOSINOPHILS ABSOLUTE AUTO 0.18 K/mm3 (0.00-0.68); EOSINOPHILS PERCENT AUTO 3 % (0-6); Hematocrit 37.7 % (33.0-51.0); Hemoglobin 12.6 g/dL (11.5-16.0); IMMATURE GRAN ABSOLUTE AUTO 0.01 K/mm3 (0.00-0.10); IMMATURE GRAN PERCENT AUTO 0 % (0-1); LYMPHOCYTES ABSOLUTE AUTO 1.72 K/mm3 (0.84-5.20); LYMPHOCYTES PERCENT AUTO 28 % (21-46); MONOCYTES ABSOLUTE AUTO 0.72 K/mm3 (0.16-1.47); MONOCYTES PERCENT AUTO 12 % (4-13); Mean Corpuscular HGB 31.5 pg (26.0-34.0); Mean Corpuscular HGB Conc 33.4 g/dL (31.5-36.5); Mean Corpuscular Volume 94 fL (80-100); Mean Platelet Volume 10.3 fL (9.1-12.4); NEUTROPHILS ABSOLUTE AUTO 3.49 K/mm3 (1.96-9.15); NEUTROPHILS PERCENT AUTO 57 % (41-73); Platelet Count 244 K/mm3 (150-400); RDW Coefficient Variation 11.4 % (11.7-14.2); RDW Standard Deviation 39.8 fL (35.1-46.3); White Blood Cell Count 6.15 K/mm3 (4.00-11.30)
[2023-08-21 13:09] LABS: Albumin, Blood 3.4 g/dL (3.4-5.0); Albumin/Globulin Ratio 0.7 (0.8-1.8); Bilirubin, Total 0.5 mg/dL (0.1-1.0); Bun/Creatinine Ratio 16.2 (12.0-20.0); Calcium, Blood 9.3 mg/dL (8.5-10.1); Creatinine, Blood 0.62 mg/dL (0.40-1.00); Globulin, Blood 4.6 g/dL (2.2-4.0); Potassium, Blood 3.9 mmol/L (3.5-5.5)
[2023-08-21] MEDS ORDERED: Diltiazem HCl 5 MG / ML 5ML Vial IV ONE (16:05)
[2023-08-21] MEDS ORDERED: dilTIAZem HCL 125 MG in Dextrose 5% 100 ML IV SCH (16:10)
[2023-08-21] MEDS ORDERED: Mag Hydrox/AL Hydrox/Simeth 30 ML UDC PO ONE (17:10)
[2023-08-21] MEDS ORDERED: Lidocaine 2% Viscous Soln 15 ML UDC PO ONE (17:10)
[2023-08-21 17:15] LABS: Thyroid Stimulating Hormone 0.441 uIU/mL (0.360-4.800)
[2023-08-21] MEDS ORDERED: SUCR1 PO (18:54)
[2023-08-21] MEDS ORDERED: Lopressor 25 mg25 MG PO (18:54)
[2023-08-21] MEDS ORDERED: Metoprolol Tartrate 25 MG Tab PO ONE (19:00)
[2023-08-21] MEDS ORDERED: Metoprolol Tartrate 1 MG/ML 5 ML VIAL IV ONE (19:00)
[2023-08-21 19:30] VITALS: BP 125/75
== END 2023-08-21 19:30 | disposition home or self-care (01) ==
LOC: ER 11:50
PROVIDERS: Emergency Medicine; Physician Assistant
DX: I48.0 Paroxysmal atrial fibrillation (principal); R07.9 Chest pain, unspecified; R10.9 Unspecified abdominal pain; Z87.891 Personal history of nicotine dependence
CPT/HCPCS: 71046; 71260; 80053; 83690; 84443; 84484; 85025; 85379; 93005; 93010; 96374; 99285-25; A9270; Q9967

== ENCOUNTER 2023-08-25 05:23 | Inpatient (IN) | payer OTHER ==
[~2023-08-25] VITALS: Ht 167.6 cm; Wt 90.3 kg
[~2023-08-25 05:23] MED LIST changes: +Lopressor 25 mg25 MG PO; +SUCR1 PO
[2023-08-25 06:06] LABS: BASOPHILS ABSOLUTE AUTO 0.02 K/mm3 (0.00-0.23); BASOPHILS PERCENT AUTO 0 % (0-2); EOSINOPHILS ABSOLUTE AUTO 0.02 K/mm3 (0.00-0.68); EOSINOPHILS PERCENT AUTO 0 % (0-6); Hematocrit 37.1 % (33.0-51.0); Hemoglobin 12.1 g/dL (11.5-16.0); IMMATURE GRAN ABSOLUTE AUTO 0.02 K/mm3 (0.00-0.10); IMMATURE GRAN PERCENT AUTO 0 % (0-1); LYMPHOCYTES ABSOLUTE AUTO 0.82 K/mm3 (0.84-5.20); LYMPHOCYTES PERCENT AUTO 10 % (21-46); MONOCYTES ABSOLUTE AUTO 0.55 K/mm3 (0.16-1.47); MONOCYTES PERCENT AUTO 6 % (4-13); Mean Corpuscular HGB 30.9 pg (26.0-34.0); Mean Corpuscular HGB Conc 32.6 g/dL (31.5-36.5); Mean Corpuscular Volume 95 fL (80-100); Mean Platelet Volume 10.3 fL (9.1-12.4); NEUTROPHILS ABSOLUTE AUTO 7.19 K/mm3 (1.96-9.15); NEUTROPHILS PERCENT AUTO 84 % (41-73); Platelet Count 301 K/mm3 (150-400); RDW Coefficient Variation 11.6 % (11.7-14.2); RDW Standard Deviation 39.6 fL (35.1-46.3); Red Blood Cell Count 3.92 M/mm3 (3.80-5.20); White Blood Cell Count 8.62 K/mm3 (4.00-11.30)
[2023-08-25 06:24] LABS: Albumin, Blood 3.2 g/dL (3.4-5.0); Albumin/Globulin Ratio 0.7 (0.8-1.8); Bilirubin, Total 0.4 mg/dL (0.1-1.0); Bun/Creatinine Ratio 24.3 (12.0-20.0); Calcium, Blood 9.2 mg/dL (8.5-10.1); Creatinine, Blood 0.58 mg/dL (0.40-1.00); Globulin, Blood 4.5 g/dL (2.2-4.0); Potassium, Blood 4.4 mmol/L (3.5-5.5); Total Protein, Blood 7.7 g/dL (6.4-8.2)
[2023-08-25] MEDS ORDERED: Ketorolac Tromethamine 30mg Vial IV ONE (09:15)
[2023-08-25] MEDS ORDERED: FentaNYL Citrate 50 MCG/ML 2 ML Injection IV ONE (09:15)
[2023-08-25] MEDS ORDERED: TraMADol HCl 50 MG Tab PO PRN (10:00)
[2023-08-25] MEDS ORDERED: TraZODone HCl 100 MG Tab PO PRN (10:05)
[2023-08-25] MEDS ORDERED: Diazepam 5 MG Tab PO PRN (10:05)
[2023-08-25] MEDS ORDERED: Albuterol HFA200 ACT/6.7 GM INH INH PRN (10:10)
[2023-08-25] MEDS ORDERED: FLU VACC QS2023-24(6MOS UP)/PF 60 MCG/0.5 ML SYRINGE IM SCH (10:10)
[2023-08-25] MEDS ORDERED: FentaNYL Citrate 50 MCG/ML 2 ML Injection IV PRN (10:40)
[2023-08-25] MEDS ORDERED: Ondansetron 4 MG SoluTab MM PRN (10:40)
[2023-08-25] MEDS ORDERED: Ketorolac Tromethamine 15mg Vial IV PRN (10:45)
[2023-08-25] MEDS ORDERED: OxyCODONE HCL 5 MG TAB PO PRN (11:25)
[2023-08-25] MEDS ORDERED: Sucralfate 1 GM Tab PO SCH (11:30)
[2023-08-25 11:58] VITALS: BP 112/79
[2023-08-25] MEDS ORDERED: NAPR500 PO (12:19)
[2023-08-25] MEDS ORDERED: Colchicine 0.6 MG TAB PO SCH (13:00)
[2023-08-25] MEDS ORDERED: Aspirin 325 MG Tab PO SCH (13:00)
[2023-08-25 16:50] VITALS: BP 103/71
--- NOTE | 2023-08-25 17:26 | NUR ---
SHIFT SUMMARY... NO ACUTE NEGATIVE CHANGES NOTED THIS SHIFT. PT'S VS HAVE BEEN STABLE. PT C/O OF 8/10 CHEST PAIN WHICH IS WORSE WITH LAYING FLAT, SHE HAS BEEN MEDICATED PER EMAR WITH MODERATELY GOOD RESULTS. PT IS IND WITH TURNING/SHIFTING WHILE IN THE BED AND SBA TO THE BSC OR BATHROOM. PT CONTINUES TO BE ON RA WITH O2 SATS>90%. WILL CONTINUE TO MONITOR UNTIL REPORT IS GIVEN TO ONCOMING RN.
--- NOTE | 2023-08-25 20:00 | NUR ---
ASSUMPTION OF CARE: THIS RN ASSUMED CARE OF PT AT APPROX 1900, REPORT FROM STONE PAULA. PT RESTING IN BED AT START OF SHIFT, AWOKEN W/ VERBAL STIMULI. ORIENTED X4, ABLE TO COMMUNICATE NEEDS W/ STAFF. HR 100'S, SINUS TACH ON TELE. BP STABLE, MAP >65. PT ENDORSES MILD-MOD CHEST PAIN BUT STATES IT HAS IMPROVED SINCE BEING ADMITTED. COLCHICINE & ASA ADMINISTERED PER EMAR WELL PO PAIN MEDICATION ORDERED. PT ENDORSES GENERALIZED PAIN WELL W/ IMPROVEMENT FOLLOWING MEDICATION ADMINISTRATION. ABLE TO AMBULATE TO BATHROOM AT START OF SHIFT W/ SBA, REPOSITIONING IN BED INDEPENDENTLY. CALL LIGHT IN REACH.
[2023-08-25 20:05] VITALS: BP 112/78
[2023-08-25] MEDS ORDERED: Famotidine 20 MG Tab PO SCH (21:00)
[2023-08-25] MEDS ORDERED: Metoprolol Tartrate 25 MG Tab PO SCH (21:00)
[2023-08-25] MEDS ORDERED: Atorvastatin 40 MG Tab PO SCH (21:00)
[2023-08-25 23:39] VITALS: BP 109/71
[2023-08-26 04:06] VITALS: BP 113/76
[2023-08-26 04:11] LABS: BASOPHILS ABSOLUTE AUTO 0.02 K/mm3 (0.00-0.23); BASOPHILS PERCENT AUTO 0 % (0-2); EOSINOPHILS ABSOLUTE AUTO 0.07 K/mm3 (0.00-0.68); EOSINOPHILS PERCENT AUTO 1 % (0-6); Hematocrit 37.6 % (33.0-51.0); Hemoglobin 12.3 g/dL (11.5-16.0); IMMATURE GRAN ABSOLUTE AUTO 0.02 K/mm3 (0.00-0.10); IMMATURE GRAN PERCENT AUTO 0 % (0-1); LYMPHOCYTES ABSOLUTE AUTO 1.95 K/mm3 (0.84-5.20); LYMPHOCYTES PERCENT AUTO 22 % (21-46); MONOCYTES ABSOLUTE AUTO 0.93 K/mm3 (0.16-1.47); MONOCYTES PERCENT AUTO 10 % (4-13); Mean Corpuscular HGB 31.2 pg (26.0-34.0); Mean Corpuscular HGB Conc 32.7 g/dL (31.5-36.5); Mean Corpuscular Volume 95 fL (80-100); Mean Platelet Volume 10.2 fL (9.1-12.4); NEUTROPHILS ABSOLUTE AUTO 6.03 K/mm3 (1.96-9.15); NEUTROPHILS PERCENT AUTO 67 % (41-73); Platelet Count 264 K/mm3 (150-400); RDW Coefficient Variation 11.7 % (11.7-14.2); RDW Standard Deviation 41.1 fL (35.1-46.3); Red Blood Cell Count 3.94 M/mm3 (3.80-5.20); White Blood Cell Count 9.02 K/mm3 (4.00-11.30)
[2023-08-26 04:32] LABS: Bun/Creatinine Ratio 20.8 (12.0-20.0); Creatinine, Blood 0.67 mg/dL (0.40-1.00); Potassium, Blood 4.6 mmol/L (3.5-5.5)
--- NOTE | 2023-08-26 04:54 | NUR ---
END OF SHIFT: NO ACUTE EVENTS OVERNIGHT. VITALS HAVE REMAINED STABLE. PT REPORTS FEELING MILD CHEST PAIN BUT STATES IT HAS GRADUALLY BEEN IMPROVING. MEDICATED FOR PAIN PER EMAR. 1 EPISODE OF N/V, MEDICATED W/ ZOFRAN PER EMAR. ABLE TO CALL APPROPRIATELY FOR ASSISTANCE, SBA TO BATHROOM. RESTING IN BED AT THIS TIME. CALL LIGHT IN REACH.
[2023-08-26] MEDS ORDERED: Omeprazole 20 MG CapCR PO SCH (06:00)
[2023-08-26 07:26] VITALS: BP 117/78
[2023-08-26] MEDS ORDERED: Loratadine 10 MG Tab PO SCH (09:00)
[2023-08-26] MEDS ORDERED: Multivitamins 1 Tab PO SCH (09:00)
[2023-08-26] MEDS ORDERED: Polyethylene Glycol 3350 17 gm PO SCH (09:00)
[2023-08-26] MEDS ORDERED: Biotin 5 MG Cap PO SCH (09:00)
[2023-08-26] MEDS ORDERED: Acetaminophen 325 MG TABLET PO PRN (09:05)
[2023-08-26 12:18] VITALS: BP 115/68
--- NOTE | 2023-08-26 17:46 | NUR ---
SHIFT SUMMARY PT AOX4 CALLS APPROPRIATELY AND OBEYS COMMANDS. PT C/O OF CHEST PAIN SINCE ADMISSION PER PT HAS NOT RESOLVED SINCE ADMIT, AWARE, MEDICATED PER EMAR. SPO2>92% ON RA, BREATHING EVEN AND UNLABORED. PT INDEPENDENTLY AMBULATES TO BATHROOM WITH STANDBY ASSIST FOR CORD MANAGEMENT. NO ACUTE CHANGES.
[2023-08-26 19:56] VITALS: BP 105/71
[2023-08-26 23:29] VITALS: BP 101/65
[2023-08-27 03:17] VITALS: BP 99/69
--- NOTE | 2023-08-27 03:51 | NUR ---
SHIFT SUMMARY NO ACUTE CHANGES THIS SHIFT. VSS. AXO4. ON RA. ST/SR STABLE BP'S. CP REMAINS, TREATING WITH REST AND MEDS PER EMAR, GENERALLY REMAINS AROUND 4-7/10 WITH UNCHANGED PAIN PATTERN. CONTINENT. OTHERWISE RESTING THIS SHIFT. BED IN LOW POSITION, CALL LIGHT WITHIN REACH.
[2023-08-27 07:40] VITALS: BP 117/73
--- NOTE | 2023-08-27 11:35 | NUR ---
PT HAS BEEN EDUCATED THAT SHE HAS A PENDING ECHOCARDIO GRAM AND STRESS TEST WHICH MEANS THAT D/C WOULD NOT OCCUR UNTIL TOMORROW, SHE IS OK WITH THIS. PT IS A/O X4. VSS. NADN. SHE REPORTS 6/10 CHEST PAIN THAT IS NOT CHANGED, SHE REPORTS THAT PAIN DOES OCCASIONALLY GET TO "8" BUT RETURNS TO 6 WITH PAIN MEDICATIONS, SHE STATES THAT SHE IS ABLE TO SLEEP WITH A PAIN OF 6. SR NOTED ON MONITOR 77. SPO2 99% ON RA. LUNG SOUNDS ARE CLEAR, EVEN CHEST RISE AND FALL NOTED, NON LABORED BREATHING. SKIN PWD AND INTACT. SHE DENIES SOB. THERE ARE NO EXTRA HEART SOUNDS NOTED, NO MURMURS, S1 AND S2 ARE NOTED, HEART SOUNDS ARE SLIGHTLY DISTANT. SHE IS CALM AND COOPERATIVE WITH CARE. TAKES MEDICATIONS WHOLE WITH WATER.
[2023-08-27 11:51] VITALS: BP 96/65
[2023-08-27 17:48] VITALS: BP 108/71
[2023-08-27 19:26] VITALS: BP 124/85
[2023-08-27] MEDS ORDERED: Aspirin 325 MG Tab PO SCH (21:00)
[2023-08-28 00:01] VITALS: BP 99/59
[2023-08-28 04:22] VITALS: BP 105/74
--- NOTE | 2023-08-28 04:35 | NUR ---
END OF SHIFT NOTE: PT A/OX4, USES CALL LIGHT APPROPRIATELY TO MAKE NEEDS KNOWN. PT DENIES CHEST PAIN/PRESSURE. STATES SHE HAS PAIN IN HER JAW AND FACE DUE TO ILL FITTING DENTURES. OUT PATIENT FOLLOW UP ALREADY SCHEDULED. PT HAS BEEN NPO SINCE MIDNIGHT. SHE HAS A PUREWICK IN PLACE TO PROMOTE REST. PT DENIES NEEDS AT THIS TIME. CALL LIGHT IN REACH, BED IN LOWEST POSITION. WILL REPORT TO ONCOMING RN
[2023-08-28] MEDS ORDERED: Aminophylline 250MG / 10ML 10 ML Vial ONE (08:09)
[2023-08-28] MEDS ORDERED: Regadenoson 0.4 MG/5 ML SYRINGE ONE (08:09)
[2023-08-28] MEDS ORDERED: Caffeine Citrated 60 MG/3 ML Vial ONE (08:11)
[2023-08-28 08:39] LABS: Hematocrit 30.7 % (33.0-51.0); Hemoglobin 10.2 g/dL (11.5-16.0); Mean Corpuscular HGB 31.3 pg (26.0-34.0); Mean Corpuscular HGB Conc 33.2 g/dL (31.5-36.5); Mean Corpuscular Volume 94 fL (80-100); Mean Platelet Volume 9.9 fL (9.1-12.4); Platelet Count 238 K/mm3 (150-400); RDW Coefficient Variation 11.4 % (11.7-14.2); RDW Standard Deviation 39.2 fL (35.1-46.3); Red Blood Cell Count 3.26 M/mm3 (3.80-5.20); White Blood Cell Count 4.84 K/mm3 (4.00-11.30)
[2023-08-28 08:52] VITALS: BP 131/82
[2023-08-28 08:59] LABS: Bun/Creatinine Ratio 14.4 (12.0-20.0); Calcium, Blood 8.6 mg/dL (8.5-10.1); Creatinine, Blood 0.63 mg/dL (0.40-1.00); Potassium, Blood 3.8 mmol/L (3.5-5.5)
[2023-08-28 11:48] VITALS: BP 105/71
[2023-08-28] MEDS ORDERED: Aspirin EC650 MG PO (14:42)
[2023-08-28] MEDS ORDERED: COLCRYS0.6 M1 PO (14:44)
--- NOTE | 2023-08-28 17:33 | NUR ---
IVs REMOVED AND PRESSURE DRESSED. SHE EXPRESSED UNDERSTANDING OF DC TEACHING. SHE DENIES FURTHER NEEDS. SHE EXPRESSED UNDERSTANDING ABOUT FOLLOW UP
== END 2023-08-28 15:26 | disposition home or self-care (01) | DRG 316 ==
LOC: ER 05:23 → PCU 05:24
PROVIDERS: Emergency Medicine; Family Medicine; ADMIT Hospitalist
DX: I31.39 Other pericardial effusion (noninflammatory) (principal); I48.0 Paroxysmal atrial fibrillation; J44.9 Chronic obstructive pulmonary disease, unspecified; K21.9 Gastro-esophageal reflux disease without esophagitis; F41.9 Anxiety disorder, unspecified; G89.4 Chronic pain syndrome; G47.00 Insomnia, unspecified; K59.09 Other constipation; F10.21 Alcohol dependence, in remission; M48.00 Spinal stenosis, site unspecified; M19.90 Unspecified osteoarthritis, unspecified site; J30.9 Allergic rhinitis, unspecified; Z88.5 Allergy status to narcotic agent; Z88.8 Allergy status to other drugs, medicaments and biological substances; Z90.710 Acquired absence of both cervix and uterus; Z96.643 Presence of artificial hip joint, bilateral; Z87.891 Personal history of nicotine dependence; Z96.653 Presence of artificial knee joint, bilateral; Z90.49 Acquired absence of other specified parts of digestive tract; Z90.89 Acquired absence of other organs; Z98.890 Other specified postprocedural states; Z79.899 Other long term (current) drug therapy
CPT/HCPCS: 36415; 71046; 71260; 78452; 80048; 80053; 83880; 84484; 84550; 85025; 85027; 85379; 85651; 86140; 93005; 93010; 93017; 93306; 93308; 93321; 94760; 94762; 96374-59; 96375; 96375-59; 99285-25; A9270; A9500; G0378; J0280; J0706; J1885; J2785; J3010; Q9967

== ENCOUNTER 2024-01-23 17:11 | Emergency (ER) | payer OTHER ==
[~2024-01-23] VITALS: Ht 167.6 cm; Wt 93.0 kg
[~2024-01-23 17:11] MED LIST changes: +Aspirin EC650 MG PO; +COLCRYS0.6 M1 PO; +NAPR500 PO
[2024-01-23 17:28] LABS: BASOPHILS ABSOLUTE AUTO 0.03 K/mm3 (0.00-0.23); BASOPHILS PERCENT AUTO 1 % (0-2); EOSINOPHILS ABSOLUTE AUTO 0.12 K/mm3 (0.00-0.68); EOSINOPHILS PERCENT AUTO 3 % (0-6); Hematocrit 36.9 % (33.0-51.0); Hemoglobin 12.5 g/dL (11.5-16.0); IMMATURE GRAN PERCENT AUTO 0 % (0-1); LYMPHOCYTES ABSOLUTE AUTO 2.35 K/mm3 (0.84-5.20); LYMPHOCYTES PERCENT AUTO 54 % (21-46); MONOCYTES ABSOLUTE AUTO 0.37 K/mm3 (0.16-1.47); MONOCYTES PERCENT AUTO 9 % (4-13); Mean Corpuscular HGB 30.6 pg (26.0-34.0); Mean Corpuscular HGB Conc 33.9 g/dL (31.5-36.5); Mean Corpuscular Volume 90 fL (80-100); Mean Platelet Volume 10.5 fL (9.1-12.4); NEUTROPHILS ABSOLUTE AUTO 1.45 K/mm3 (1.96-9.15); NEUTROPHILS PERCENT AUTO 34 % (41-73); Platelet Count 147 K/mm3 (150-400); RDW Coefficient Variation 12.8 % (11.7-14.2); RDW Standard Deviation 42.5 fL (35.1-46.3); Red Blood Cell Count 4.09 M/mm3 (3.80-5.20); White Blood Cell Count 4.32 K/mm3 (4.00-11.30)
[2024-01-23 17:44] LABS: Albumin, Blood 3.7 g/dL (3.4-5.0); Bilirubin, Total 0.3 mg/dL (0.1-1.0); Bun/Creatinine Ratio 16.6 (12.0-20.0); Calcium, Blood 8.6 mg/dL (8.5-10.1); Creatinine, Blood 0.72 mg/dL (0.40-1.00); Globulin, Blood 3.6 g/dL (2.2-4.0); Potassium, Blood 3.4 mmol/L (3.5-5.5); Total Protein, Blood 7.3 g/dL (6.4-8.2)
[2024-01-23 20:30] VITALS: BP 118/78
== END 2024-01-23 20:52 | disposition home or self-care (01) ==
LOC: ER 17:11
PROVIDERS: Emergency Medicine
DX: R07.89 Other chest pain (principal); R00.2 Palpitations; F43.10 Post-traumatic stress disorder, unspecified; J44.9 Chronic obstructive pulmonary disease, unspecified; M19.90 Unspecified osteoarthritis, unspecified site; Z88.5 Allergy status to narcotic agent; Z88.1 Allergy status to other antibiotic agents; Z79.899 Other long term (current) drug therapy
CPT/HCPCS: 71045; 80053; 83690; 84484; 85025; 85379

== ENCOUNTER → 2024-03-08 | Outpatient (CLI) | payer OTHER ==
[2024-03-08 12:54] LABS: BASOPHILS ABSOLUTE AUTO 0.03 K/mm3 (0.00-0.23); BASOPHILS PERCENT AUTO 1 % (0-2); EOSINOPHILS ABSOLUTE AUTO 0.12 K/mm3 (0.00-0.68); EOSINOPHILS PERCENT AUTO 3 % (0-6); Hematocrit 40.3 % (33.0-51.0); Hemoglobin 13.2 g/dL (11.5-16.0); IMMATURE GRAN PERCENT AUTO 0 % (0-1); LYMPHOCYTES ABSOLUTE AUTO 2.34 K/mm3 (0.84-5.20); LYMPHOCYTES PERCENT AUTO 49 % (21-46); MONOCYTES ABSOLUTE AUTO 0.29 K/mm3 (0.16-1.47); MONOCYTES PERCENT AUTO 6 % (4-13); Mean Corpuscular HGB 31.7 pg (26.0-34.0); Mean Corpuscular HGB Conc 32.8 g/dL (31.5-36.5); Mean Corpuscular Volume 97 fL (80-100); Mean Platelet Volume 10.7 fL (9.1-12.4); NEUTROPHILS PERCENT AUTO 42 % (41-73); Platelet Count 198 K/mm3 (150-400); RDW Standard Deviation 46.3 fL (35.1-46.3); Red Blood Cell Count 4.17 M/mm3 (3.80-5.20); White Blood Cell Count 4.78 K/mm3 (4.00-11.30)
[2024-03-08 13:03] LABS: Albumin/Globulin Ratio 1.1 (0.8-1.8); Bilirubin, Total 0.4 mg/dL (0.1-1.0); Bun/Creatinine Ratio 16.3 (12.0-20.0); Calcium, Blood 9.3 mg/dL (8.5-10.1); Creatinine, Blood 0.86 mg/dL (0.40-1.00); Globulin, Blood 3.8 g/dL (2.2-4.0); Potassium, Blood 3.8 mmol/L (3.5-5.5); Total Protein, Blood 7.8 g/dL (6.4-8.2)
== END ==
LOC: LAB SHORT 12:49 → LAB 12:49
PROVIDERS: Physician Assistant
DX: M54.9 Dorsalgia, unspecified (principal); G89.29 Other chronic pain
CPT/HCPCS: 80053; 83690; 85025

== ENCOUNTER → 2024-07-01 | Outpatient (CLI) | payer OTHER | END | disposition home or self-care (01) | LOC: LAB SHORT 11:44 → LAB 11:44 | DX: L72.3 Sebaceous cyst (principal); L08.9 Local infection of the skin and subcutaneous tissue, unspecified | CPT/HCPCS: 87070; 87205 ==

== ENCOUNTER 2024-08-22 15:13 | Emergency (ER) | payer OTHER ==
[~2024-08-22] VITALS: Ht 167.6 cm; Wt 93.0 kg
[2024-08-22] MEDS ORDERED: Aspirin 325 MG Tab PO ONE (15:20)
[2024-08-22] MEDS ORDERED: Acetaminophen 500 MG Tab PO ONE (15:20)
[2024-08-22] MEDS ORDERED: Ibuprofen 600 MG Tab PO ONE (15:20)
[2024-08-22 15:39] LABS: BASOPHILS ABSOLUTE AUTO 0.03 K/mm3 (0.00-0.23); BASOPHILS PERCENT AUTO 1 % (0-2); EOSINOPHILS ABSOLUTE AUTO 0.08 K/mm3 (0.00-0.68); EOSINOPHILS PERCENT AUTO 2 % (0-6); Hematocrit 39.3 % (33.0-51.0); Hemoglobin 13.3 g/dL (11.5-16.0); IMMATURE GRAN ABSOLUTE AUTO 0.01 K/mm3 (0.00-0.10); IMMATURE GRAN PERCENT AUTO 0 % (0-1); LYMPHOCYTES ABSOLUTE AUTO 2.04 K/mm3 (0.84-5.20); LYMPHOCYTES PERCENT AUTO 41 % (21-46); MONOCYTES ABSOLUTE AUTO 0.36 K/mm3 (0.16-1.47); MONOCYTES PERCENT AUTO 7 % (4-13); Mean Corpuscular HGB 32.4 pg (26.0-34.0); Mean Corpuscular HGB Conc 33.8 g/dL (31.5-36.5); Mean Corpuscular Volume 96 fL (80-100); Mean Platelet Volume 10.6 fL (9.1-12.4); NEUTROPHILS ABSOLUTE AUTO 2.41 K/mm3 (1.96-9.15); NEUTROPHILS PERCENT AUTO 49 % (41-73); Platelet Count 172 K/mm3 (150-400); RDW Coefficient Variation 12.4 % (11.7-14.2); RDW Standard Deviation 43.8 fL (35.1-46.3); White Blood Cell Count 4.93 K/mm3 (4.00-11.30)
[2024-08-22 15:53] LABS: Bun/Creatinine Ratio 15.6 (12.0-20.0); Creatinine, Blood 0.7 mg/dL (0.40-1.00); Magnesium, Blood 2.1 mg/dL (1.6-2.4); Potassium, Blood 3.8 mmol/L (3.5-5.5)
[2024-08-22 16:15] LABS: Free Thyroxine 1.25 ng/dL (0.70-1.60); Thyroid Stimulating Hormone 0.951 uIU/mL (0.360-4.800)
[2024-08-22] MEDS ORDERED: DiphenhydrAMINE HCl 50 MG/ML 1ML Vial IV ONE (16:35)
[2024-08-22] MEDS ORDERED: NS 1,000 ML IV SCH (16:35)
[2024-08-22] MEDS ORDERED: Prochlorperazine Edisylate 10 mg Vial IV ONE (16:35)
[2024-08-22] MEDS ORDERED: IBUP600 PO (17:04)
[2024-08-22 18:45] VITALS: BP 111/60
== END 2024-08-22 18:55 | disposition home or self-care (01) ==
LOC: ER 15:13
PROVIDERS: Emergency Medicine
DX: R07.89 Other chest pain (principal); Z88.1 Allergy status to other antibiotic agents; Z88.5 Allergy status to narcotic agent; Z79.899 Other long term (current) drug therapy; J44.9 Chronic obstructive pulmonary disease, unspecified
CPT/HCPCS: 71045; 80048; 83735; 83880; 84439; 84443; 84484; 85025; 93005; 93010; 96374; 96375; 99285-25; A9270; J0780; J1200; J7030

== ENCOUNTER 2025-02-26 23:20 | Emergency (ER) | payer OTHER ==
[~2025-02-26] VITALS: Ht 167.6 cm; Wt 95.2 kg
[~2025-02-26 23:20] MED LIST changes: +IBUP600 PO
[2025-02-26] MEDS ORDERED: Cymbalta20 MG PO (23:36)
[2025-02-26 23:49] LABS: BASOPHILS ABSOLUTE AUTO 0.02 K/mm3 (0.00-0.23); BASOPHILS PERCENT AUTO 0 % (0-2); EOSINOPHILS ABSOLUTE AUTO 0.08 K/mm3 (0.00-0.68); EOSINOPHILS PERCENT AUTO 1 % (0-6); Hematocrit 35.7 % (33.0-51.0); Hemoglobin 11.8 g/dL (11.5-16.0); IMMATURE GRAN ABSOLUTE AUTO 0.02 K/mm3 (0.00-0.10); IMMATURE GRAN PERCENT AUTO 0 % (0-1); LYMPHOCYTES ABSOLUTE AUTO 1.26 K/mm3 (0.84-5.20); LYMPHOCYTES PERCENT AUTO 18 % (21-46); MONOCYTES ABSOLUTE AUTO 0.74 K/mm3 (0.16-1.47); MONOCYTES PERCENT AUTO 10 % (4-13); Mean Corpuscular HGB Conc 33.1 g/dL (31.5-36.5); Mean Corpuscular Volume 96 fL (80-100); NEUTROPHILS ABSOLUTE AUTO 5.01 K/mm3 (1.96-9.15); NEUTROPHILS PERCENT AUTO 70 % (41-73); NRBC ABSOLUTE 0.00 K/mm3 (0.00-0.02); NRBC Auto 0.0 /100 WBC (0.0-0.2); Platelet Count 154 K/mm3 (150-400); RDW Coefficient Variation 12.0 % (11.7-14.2); RDW Standard Deviation 41.9 fL (35.1-46.3)
[2025-02-26 23:54] LABS: Source, Urine Clean Catch
[2025-02-27 00:07] LABS: Bilirubin, Urine Neg (Neg); Glucose Qualitative, Urine Neg (Neg); Ketones, Urine Neg (Neg); Leukocyte Esterase, Urine 1+ (Neg); Protein, Urine Neg (Neg); Specific Gravity, Urine 1.005 (1.003-1.022); Urobilinogen, Urine NORM (Normal)
[2025-02-27 00:11] LABS: Color, Urine Yellow (P-Yellow)
[2025-02-27 00:23] LABS: Alanine Aminotransfer (ALT/SGP 33.0 U/L (12-78); Albumin, Blood 3.4 g/dL (3.4-5.0); Albumin/Globulin Ratio 0.9 (0.8-1.8); Anion Gap 7.0 mmol/L (3-11); Aspartate Aminotrans (AST/SGOT 27.0 U/L (12-37); Bilirubin, Total 0.4 mg/dL (0.1-1.0); Blood Urea Nitrogen 14.0 mg/dL (8-24); CO2, Blood 26.0 mmol/L (21-32); Calcium, Blood 8.6 mg/dL (8.5-10.1); Chloride, Blood 108.0 mmol/L (98-108); Creatinine, Blood 0.82 mg/dL (0.40-1.00); Globulin, Blood 3.9 g/dL (2.2-4.0); Glucose, Blood 110.0 mg/dL (70-99); Potassium, Blood 3.6 mmol/L (3.5-5.5); Sodium, Blood 137.0 mmol/L (136-145); Total Protein, Blood 7.3 g/dL (6.4-8.2)
[2025-02-27] MEDS ORDERED: FentaNYL Citrate 50 MCG/ML 2 ML Injection IV PRN (00:35)
[2025-02-27 00:38] LABS: Red Blood Cells, Urine 0-2 /hpf (0-2); White Blood Cells, Urine 0-2 /hpf (0-5)
[2025-02-27] MEDS ORDERED: NS 1,000 ML IV SCH (02:05)
[2025-02-27] MEDS ORDERED: ONDA4ODT MM (02:13)
[2025-02-27] MEDS ORDERED: AMOCLA875 PO (02:13)
[2025-02-27] MEDS ORDERED: Ketorolac Tromethamine 15mg Vial IV ONE (02:15)
[2025-02-27 02:23] VITALS: BP 119/70
== END 2025-02-27 02:50 | disposition home or self-care (01) ==
LOC: ER 23:20
PROVIDERS: Emergency Medicine
DX: K57.32 Diverticulitis of large intestine without perforation or abscess without bleeding (principal); R73.9 Hyperglycemia, unspecified; M19.90 Unspecified osteoarthritis, unspecified site; F43.10 Post-traumatic stress disorder, unspecified; J44.9 Chronic obstructive pulmonary disease, unspecified; I48.91 Unspecified atrial fibrillation; Z79.899 Other long term (current) drug therapy; Z88.1 Allergy status to other antibiotic agents; Z88.5 Allergy status to narcotic agent
CPT/HCPCS: 74177; 80053; 81001; 83690; 84484; 85025; 93005; 93010; 96374-59; 96375; 99285-25; A9270; J1885; J3010; J7030; Q9967

== ENCOUNTER → 2025-04-15 | Outpatient (CLI) | payer OTHER ==
[~2025-04-15] MED LIST changes: +AMOCLA875 PO; +Cymbalta20 MG PO
[2025-04-15 13:11] LABS: BASOPHILS ABSOLUTE AUTO 0.03 K/mm3 (0.00-0.23); BASOPHILS PERCENT AUTO 1 % (0-2); EOSINOPHILS ABSOLUTE AUTO 0.13 K/mm3 (0.00-0.68); EOSINOPHILS PERCENT AUTO 4 % (0-6); Hematocrit 39.3 % (33.0-51.0); Hemoglobin 13.0 g/dL (11.5-16.0); IMMATURE GRAN ABSOLUTE AUTO 0.01 K/mm3 (0.00-0.10); IMMATURE GRAN PERCENT AUTO 0 % (0-1); LYMPHOCYTES ABSOLUTE AUTO 1.28 K/mm3 (0.84-5.20); LYMPHOCYTES PERCENT AUTO 39 % (21-46); MONOCYTES ABSOLUTE AUTO 0.28 K/mm3 (0.16-1.47); MONOCYTES PERCENT AUTO 9 % (4-13); Mean Corpuscular HGB Conc 33.1 g/dL (31.5-36.5); Mean Corpuscular Volume 95 fL (80-100); NEUTROPHILS ABSOLUTE AUTO 1.52 K/mm3 (1.96-9.15); NEUTROPHILS PERCENT AUTO 47 % (41-73); NRBC ABSOLUTE 0.00 K/mm3 (0.00-0.02); NRBC Auto 0.0 /100 WBC (0.0-0.2); Platelet Count 204 K/mm3 (150-400); RDW Coefficient Variation 12.6 % (11.7-14.2); RDW Standard Deviation 43.4 fL (35.1-46.3)
[2025-04-15 13:22] LABS: Alanine Aminotransfer (ALT/SGP 70.0 U/L (12-78); Albumin, Blood 3.9 g/dL (3.4-5.0); Albumin/Globulin Ratio 1.0 (0.8-1.8); Anion Gap 11.0 mmol/L (3-11); Aspartate Aminotrans (AST/SGOT 52.0 U/L (12-37); Bilirubin, Total 0.5 mg/dL (0.1-1.0); Blood Urea Nitrogen 9.0 mg/dL (8-24); CO2, Blood 31.0 mmol/L (21-32); Calcium, Blood 9.6 mg/dL (8.5-10.1); Chloride, Blood 103.0 mmol/L (98-108); Creatinine, Blood 0.76 mg/dL (0.40-1.00); Globulin, Blood 3.9 g/dL (2.2-4.0); Glucose, Blood 97.0 mg/dL (70-99); Potassium, Blood 4.1 mmol/L (3.5-5.5); Sodium, Blood 141.0 mmol/L (136-145); Total Protein, Blood 7.8 g/dL (6.4-8.2)
== END ==
LOC: LAB SHORT 13:06 → LAB 13:06
DX: R07.9 Chest pain, unspecified (principal)
CPT/HCPCS: 80053; 84484; 85025

== ENCOUNTER → 2025-07-11 | Outpatient (CLI) | payer OTHER ==
[2025-07-11 11:39] LABS: BASOPHILS ABSOLUTE AUTO 0.02 K/mm3 (0.00-0.23); BASOPHILS PERCENT AUTO 1 % (0-2); EOSINOPHILS ABSOLUTE AUTO 0.12 K/mm3 (0.00-0.68); EOSINOPHILS PERCENT AUTO 4 % (0-6); Hematocrit 37.9 % (33.0-51.0); Hemoglobin 12.5 g/dL (11.5-16.0); IMMATURE GRAN ABSOLUTE AUTO 0.00 K/mm3 (0.00-0.10); IMMATURE GRAN PERCENT AUTO 0 % (0-1); LYMPHOCYTES ABSOLUTE AUTO 1.45 K/mm3 (0.84-5.20); LYMPHOCYTES PERCENT AUTO 42 % (21-46); MONOCYTES ABSOLUTE AUTO 0.31 K/mm3 (0.16-1.47); MONOCYTES PERCENT AUTO 9 % (4-13); Mean Corpuscular HGB Conc 33.0 g/dL (31.5-36.5); Mean Corpuscular Volume 96 fL (80-100); NEUTROPHILS ABSOLUTE AUTO 1.57 K/mm3 (1.96-9.15); NEUTROPHILS PERCENT AUTO 45 % (41-73); NRBC ABSOLUTE 0.00 K/mm3 (0.00-0.02); NRBC Auto 0.0 /100 WBC (0.0-0.2); Platelet Count 153 K/mm3 (150-400); RDW Coefficient Variation 12.2 % (11.7-14.2); RDW Standard Deviation 43.2 fL (35.1-46.3)
[2025-07-11 11:47] LABS: Alanine Aminotransfer (ALT/SGP 38.0 U/L (12-78); Albumin, Blood 3.8 g/dL (3.4-5.0); Albumin/Globulin Ratio 1.0 (0.8-1.8); Anion Gap 10.0 mmol/L (3-11); Aspartate Aminotrans (AST/SGOT 29.0 U/L (12-37); Bilirubin, Total 0.4 mg/dL (0.1-1.0); Blood Urea Nitrogen 11.0 mg/dL (8-24); CO2, Blood 32.0 mmol/L (21-32); Calcium, Blood 9.3 mg/dL (8.5-10.1); Chloride, Blood 106.0 mmol/L (98-108); Creatinine, Blood 0.89 mg/dL (0.40-1.00); Globulin, Blood 3.7 g/dL (2.2-4.0); Glucose, Blood 92.0 mg/dL (70-99); Magnesium, Blood 2.2 mg/dL (1.6-2.4); Potassium, Blood 3.9 mmol/L (3.5-5.5); Sodium, Blood 144.0 mmol/L (136-145); Total Protein, Blood 7.5 g/dL (6.4-8.2)
== END ==
LOC: LAB SHORT 11:34
PROVIDERS: Chiropractor
DX: R07.89 Other chest pain (principal)
CPT/HCPCS: 80053; 83735; 84484; 85025; 85379